=== PATIENT | male | born 1995 ===

== ENCOUNTER 2022-09-04 13:40 | Emergency (ER) | payer BC ==
[2022-09-04] MEDS ORDERED: Ketorolac 60 MG/2 ML SDV IM ONE (15:46)
[2022-09-04] MEDS ORDERED: Acetaminophen/HYDROcodone 325-5 MG Tab PO ONE (15:46)
== END 2022-09-04 16:21 | disposition home or self-care (01) ==
LOC: MW.ED 13:40
DX: K02.9 Dental caries, unspecified (principal)
CPT/HCPCS: 96372; 99282; A9270; J1885